=== PATIENT | female | born 1940 | race Caucasian/White ===

== ENCOUNTER → 2021-07-05 | Outpatient (CLI) | payer OTHER ==
[~2021-07-05] VITALS: Ht 170.2 cm; Wt 79.4 kg
[~2021-07-05] MED LIST: GINKGO BILOBA60 MG PO; LIPITOR 20 MG T20 M1 PO; NABUMETONE 500500 M2 PO; PRAMIPEXOLE0.125 MG PO; TYLENOL EXTRA500 MG PO; VITAMIN D3125 MC1 PO
[2021-07-05 10:06] VITALS: BP 162/85
--- NOTE | 2021-07-05 10:25 | NUR ---
Pain Clinic Assessment: 1. History of Osteoarthritis: HANDS History of Rheumatoid Arthritis: 2. Height: 5 ft. 7 in. 170.2 cm. Weight: 175.0 lb. oz. 79.380 kg. Patient's BMI: 27.4 3. Vital Signs: BP: 162/85 Pulse: 81 Resp: 16 Temp: 02 Sat: 98 ECG Mon: 4. Pain Intensity: 2 LYING, 9 STANDING 5. Fall Risk: Dizziness: Y Needs help standing or walking: Y Fallen in the last 3 months: Y Fall risk comments: 6. Patient on Blood Thinner: None 7. History of Hypertension: N 8. Opioid Therapy greater than 6 weeks: Opiate Contract Signed: 9. Risk Assessment Tool Provided: 0 LOW RISK 10. Functional Assessment Tool: 63/70 11. Recreational Drug Use: Never Drug Type: Tobacco Use: Former Smoker Tobacco Type: Amount or Packs/day: How Many Years: Alcohol Use: No Frequency: Quant:
== END ==
LOC: PAIN 07:04
PROVIDERS: ATTEND Anesthesiology Pain Medicine
DX: M19.90 Unspecified osteoarthritis, unspecified site (principal); M06.80 Other specified rheumatoid arthritis, unspecified site

== ENCOUNTER → 2021-07-19 | Outpatient (CLI) | payer OTHER ==
[~2021-07-19] VITALS: Ht 170.2 cm; Wt 77.5 kg
--- NOTE | ~2021-07-19 | HPC ---
[facility] [address] [address] PAIN MANAGEMENT CONSULTATION Name: DENVER AGUILAR Room #: REG MICHAEL ChaudharyRazia#: [id number] Admission: 07/19/21 Attend Phys: Peter Mack DO Discharge: Date of : 42 Report #: [id number] THIS REPORT FOR: cc: AVERY STONER Physician not on staff Peter Mack DO ~ cc: Jaleesa Landin DATE OF SERVICE: 07/19/2021 REFERRING PHYSICIAN: Jaleesa Landin. CHIEF COMPLAINT: Left upper buttock pain. HISTORY OF PRESENT ILLNESS: As you know, the patient is a 80-year-old female referred to our service for left sacroiliac joint pain. The patient was seen in consultation per the request of referring physician, 07/05/2021. At that time, the patient was experiencing pain involving the low back and left buttock area, consistent with left SI joint dysfunction. We provided the patient adjustments in medication management, starting her on an anti-inflammatory to help for pain control. She is taking 500 mg nabumetone 3 times a day with resolution of about 50% of her symptoms. She is now placing pain score at 2/10 to 6/10 depending on activity. She is very pleased with response to the adjustments in medication management. Returning today in followup visit to discuss treatment options. At the last visit, we discussed that options would include physical therapy, stretching exercise, core strengthening and manipulation of the sacroiliac joints. We discussed the medication management made at our last visit. We also discussed SI joint injections to address symptoms more directly and ultimately fusion of the sacroiliac joint. The patient chose to adjust medications and begin the process of authorization for SI joint injection. She returns today in followup visit to discuss the SI joint injection further. The patient denies new injury, new trauma or any changes in medication management since her last visit. ALLERGIES: No known drug allergies. CURRENT MEDICATIONS: Tylenol Extra Strength 500 mg 4 times a day, cholecalciferol 125 mcg per day, Ginkgo biloba 60 mg b.i.d., atorvastatin 20 mg per day, pramipexole 0.125 mg once a day, nabumetone 500 mg 3 times a day. SOCIAL HISTORY: The patient denies tobacco, alcohol or IV or illicit drug use. 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 She is accompanied by her daughter, present in room today. IMAGING: No new imaging available. PQRS: The patient has known arthritic changes of lumbar spine, based on x-ray [address] [address] PAIN MANAGEMENT CONSULTATION Name: DENVER AGUILAR Room #: REG [facility].#: [id number] Admission: 07/19/21 Attend Phys: Peter Mack DO Discharge: Date of : 42 Report #: [id number] imaging. No rheumatoid arthritis. She is placing pain intensity somewhere between 2-6/10 depending on activity. She is not a fall risk, has not had a fall since our last visit, but did have a fall in the shower on 07/04. She is not on blood thinners and not treated for hypertension. She is not on opioids, has a low opioid addiction potential. Pain impact remains high at 45/70. PHYSICAL EXAMINATION: VITAL SIGNS: Blood pressure 155/89, pulse is 89, respiratory rate 20, unlabored. The patient 100% on room air. Height 5 feet 7 inches tall, weight 170.8 pounds, BMI calculated 26.7. GENERAL: A well-developed, well-nourished, well-hydrated 80-year-old female appearing stated age, pain is rated at 2-6/10. HEENT: Normocephalic, atraumatic. She is wearing a mask in compliance with COVID-19 regulations and following hospital policies. EXTREMITIES: Show no clubbing, no cyanosis, no edema. MUSCULOSKELETAL: Lower extremity strength is symmetrical, 5/5. Giveaway strength noted on the left compared to the right. Positive SI distraction test on the left, negative right. Positive SI compression test on the left when compared to the right. Positive thigh thrust maneuver on the left when compared to the right. Positive sacral thrust maneuver on the left when compared to the right. Positive MARIZOL maneuver on the left compared to the right. ASSESSMENT: 1. Left sacroiliac joint pain. 2. Chronic low back pain. 3. 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 PLAN: 1. The patient returns today in followup visit. We have discussed the treatment options we have available to address sacroiliac joint pain. She is pleased with response to the nabumetone 500 mg 3 times a day dose. She is denying side effects of dyspepsia, worsening of blood pressure, lower extremity edema with use of medication. She has noted improvement in symptoms that is significant enough that she is able to participate in some of the activities of daily living without significant pain interference. We discussed the various treatment options we have available to this point and she does wish to move forward with SI joint injection if her symptoms do not continue to improve. We have to obtain the authorization. The patient was advised that today. 2. We have set the patient back for physical therapy twice a week for 6 weeks. She will begin that process. She has been in physical therapy in the past and we are having them adjust her further to optimize her physical condition, so that if SI joint injections provided, will see better benefit. 3. The patient has had conservative care for this in the past, but this was abandoned due to severe pain. She does participate in her current home light exercise and stretching program, which is physician directed. She is utilizing medications for treatment without significant benefit except for the adjustments [facility] [address] [place] [address] PAIN MANAGEMENT CONSULTATION Name: AGUILARDENVER Room #: REG CLTerese Kruger#: [id number] Admission: 07/19/21 Attend Phys: Peter Mack DO Discharge: Date of : 42 Report #: [id number] with the nabumetone as indicated above. 4. We will begin the authorization process for the patient to undergo a left sacroiliac joint injection under fluoroscopic guidance. I believe this will be quite beneficial for the patient and will improve her overall symptoms. We will begin that process immediately. 5. I am hopeful to see the patient back in followup visit as quickly as possible once the authorization has been obtained to undergo the requested left SI joint injection. By: [id number] Peter Mack DO /nt
[2021-07-19 10:18] VITALS: BP 155/89
--- NOTE | 2021-07-19 10:37 | NUR ---
Pain Clinic Assessment: 1. History of Osteoarthritis: HANDS History of Rheumatoid Arthritis: 2. Height: 5 ft. 7 in. 170.2 cm. Weight: 170.8 lb. oz. 77.474 kg. Patient's BMI: 26.7 3. Vital Signs: BP: 155/89 Pulse: 89 Resp: 20 Temp: 02 Sat: 100 ECG Mon: 4. Pain Intensity: 2 SITTING 6 WHEN UP 5. Fall Risk: Dizziness: N Needs help standing or walking: N Fallen in the last 3 months: N Fall risk comments: 6. Patient on Blood Thinner: None 7. History of Hypertension: N 8. Opioid Therapy greater than 6 weeks: Opiate Contract Signed: 9. Risk Assessment Tool Provided: 0 LOW RISK 10. Functional Assessment Tool: 63/70 11. Recreational Drug Use: Never Drug Type: Tobacco Use: Former Smoker Tobacco Type: Amount or Packs/day: How Many Years: Alcohol Use: No Frequency: Quant:
== END ==
LOC: PAIN 09:15
PROVIDERS: ATTEND Anesthesiology Pain Medicine
DX: M53.3 Sacrococcygeal disorders, not elsewhere classified (principal); G89.29 Other chronic pain; M51.26 Other intervertebral disc displacement, lumbar region; Z79.899 Other long term (current) drug therapy

== ENCOUNTER → 2021-08-16 | Outpatient (CLI) | payer OTHER ==
[~2021-08-16] VITALS: Ht 170.2 cm; Wt 79.4 kg
[2021-08-16 10:53] VITALS: BP 165/90
--- NOTE | 2021-08-16 11:00 | NUR ---
Pain Clinic Assessment: 1. History of Osteoarthritis: HANDS History of Rheumatoid Arthritis: 2. Height: 5 ft. 7 in. 170.2 cm. Weight: 175.0 lb. oz. 79.380 kg. Patient's BMI: 27.4 3. Vital Signs: BP: 165/90 Pulse: 91 Resp: 20 Temp: 02 Sat: 98 ECG Mon: 4. Pain Intensity: 1 5. Fall Risk: Dizziness: N Needs help standing or walking: N Fallen in the last 3 months: N Fall risk comments: 6. Patient on Blood Thinner: None 7. History of Hypertension: N 8. Opioid Therapy greater than 6 weeks: Opiate Contract Signed: 9. Risk Assessment Tool Provided: 0 LOW RISK 10. Functional Assessment Tool: 63/70 11. Recreational Drug Use: Never Drug Type: Tobacco Use: Former Smoker Tobacco Type: Amount or Packs/day: How Many Years: Alcohol Use: No Frequency: Quant:
== END ==
LOC: PAIN 08-09 09:16
PROVIDERS: ATTEND Anesthesiology Pain Medicine
DX: M25.562 Pain in left knee (principal); M25.552 Pain in left hip; M54.50 Low back pain, unspecified